=== PATIENT | male | born 1955 | race Caucasian/White ===

== ENCOUNTER 2018-11-23 05:10 | Day surgery (SDC) | payer BC ==
[2018-11-22 16:28] VITALS: BMI 26.4
--- NOTE | 2018-11-23 12:35 | HP ---
Satellite [facility] - Chief Complaint Chief Complaint: left shoulder dislocation - Past Medical History Allergies/Adverse Reactions: Allergies Allergy/AdvReac Type Severity Reaction Status Date / Time No Known Allergies Allergy Verified 02/14/15 15:25 - Current Medications Current Medications: Home Medications Medication Instructions Recorded Atorvastatin Ca [Lipitor] 10 mg PO DAILY 11/22/18 Satellite Physical Exam - Physical Examination General Appearance: Well Nourished, Well Developed, Alert & Oriented x3 ENT: Clear Lung: Normal air movement Heart: Regular rate & rhythm Extremities: Other (left shoulder- + ttp, decr rom, nvi, MRI + posterior GH dislocation, nvi) Neurological: Intact, Alert, Oriented Satellite Impression/Plan - Impression/Plan Impression: left shoulder posterior dislocation Operative Procedure: left shoulder closed reduction possible open reduction Date to be Performed: 11/23/18
[2018-11-23] MEDS ORDERED: ROPIVACAINE HCL 0.5% 30ML VIAL ONE (15:19)
[2018-11-23] MEDS ORDERED: ONDANSETRON 4 MG/2 ML VIAL IVPUSH PRN (15:37)
[2018-11-23] MEDS ORDERED: PROMETHAZINE HCL 25 MG/1 ML VIAL IVPUSH PRN (15:37)
[2018-11-23] MEDS ORDERED: MIDAZOLAM HCL 2 MG/2 ML SINGLE DOSE VIAL ONE ×2 (15:41)
[2018-11-23] MEDS ORDERED: LACTATED RINGERS SOLUTION 1,000 ML IV SCH (15:45)
[2018-11-23] MEDS ORDERED: PROPOFOL 20 ML ONE (16:08)
[2018-11-23] MEDS ORDERED: DEXAMETHASONE SOD PHOSPHATE 4 MG/1 ML VIAL ONE (16:34)
[2018-11-23] MEDS ORDERED: ceFAZolin SODIUM 1 GM VIAL ONE (16:50)
[2018-11-23] MEDS ORDERED: ceFAZolin SODIUM 1 GM VIAL IVPB ONE (16:51)
[2018-11-23] MEDS ORDERED: EPHEDRINE SULFATE/0.9% NACL/PF 50 MG/10 ML SYRINGE NR ONE (17:13)
--- NOTE | 2018-11-23 17:45 | OP ---
Operative Note - Note: Operative Date: 11/23/18 ([facility]) Pre-Operative Diagnosis: left posterior shoulder dislocation Operation: left shoulder attempted closed reduction, open reduction and capsular repair Post-Operative Diagnosis: Same as Pre-op Surgeon: Yung Salinas Media Services Coordinator: Fredy De Jesus Anesthesiologist/SALES COMPENSATION ANALYST: Joce Rausch Anesthesia: General, Local Estimated Blood Loss (mls): 200 Operative Report Dictated: Yes
[2018-11-23] MEDS ORDERED: oxyCODONE HCL 5 MG TABLET PO PRN (18:27)
[2018-11-23] MEDS ORDERED: oxyCODONE HCL 5 MG TABLET ONE (18:59)
[2018-11-23 19:28] VITALS: BP 144/85; PULSE 89; TEMP 97.9
--- NOTE | 2018-11-23 19:54 | OP ---
DATE OF OPERATION: 11/23/2018 PREOPERATIVE DIAGNOSES: Subacute left shoulder dislocation and Hill-Sachs lesion. POSTOPERATIVE DIAGNOSES: Subacute left shoulder dislocation and Hill-Sachs lesion. PROCEDURE: Left shoulder open reduction and anterior capsular repair. SURGEON: Gonzalo Medley MD PHARMACEUTICAL REPRESENTATIVE: DAVID Fung ANESTHESIOLOGIST: Kelvin Uribe CRNA ANESTHESIA: Left interscalene block, LMA anesthesia. DRAINS: None. COMPLICATIONS: None. SPECIMEN: None. BLOOD LOSS: Minimal. BLOOD GIVEN: None. FLUID REPLACEMENT: Plasma-Lyte 1000 mL. This patient is a 63-year-old, [id number] male who is now 11 weeks status post left shoulder dislocation and Hill-Sachs lesion. After understanding the potential risks, complications, alternatives, and benefits of surgery versus nonsurgical treatment, the patient elected to undergo this procedure. The plan was to take the patient to the operating room, attempt closed reduction, and if unsuccessful, do an open reduction and in situ evaluation of structures that potentially would need repairing. He understands the order and decision-making process and has elected to go forward with this procedure. All questions and concerns were addressed for both him and his family members. Patient was brought to the operating room. Peripheral IV placed. IV sedation given. A left interscalene block was performed. LMA anesthesia was induced. He was placed into the beach chair position under deep relaxation sedation. X-rays were taken. At this point, it was noted that overall the dislocation did not look that displaced, and the head overall looked quite intact. The fracture fragments were present, but seemed to be well healed. Multiple attempts were made from multiple different positions and with different maneuvers to try to reduce the shoulder, and it was impossible. After approximately 25 minutes of attempted reduction maneuvers, I made the decision to convert to an open reduction. He was then placed upwards, into completely-upwards beach chair position. The left upper extremity was prepped and draped in sterile fashion. A typical deltopectoral approach was marked out with marking pen. He was given 2 g of IV Ancef. Incision was made with number-15 scalpel blade. Subcutaneous hemostasis was achieved with Bovie cautery dissection done down to the deltopectoral interval. The deltoid was split both with Metzenbaum scissors and bluntly with my fingers. A Henly retractor was placed into the wound superior to the axillary nerve. This then exposed the anterior capsule. It was incised longitudinally. Capsulotomy was done with the Bovie down into the joint capsule. Synovial fluid was suctioned out. I continued with the T capsulotomy. The subscapularis was seen to be draped over the anterior edge of the glenoid because of the posterior dislocation of the humeral head. Once I was into the joint, I was able to use my finger to bluntly dissect some scar tissue and adhesions around the glenoid. The glenoid itself looked fine. It was not damaged. There was no arthritis. There was no defect. The humeral head had a huge Hill-Sachs lesion, one of the biggest I have seen. The Hill-Sachs lesion was so big, it was a large, wide V shape with only a very thin outer shell of humeral head about the width of my finger left anteriorly, laterally, and posteriorly. None was left medially. The entire ball structure of the humeral head was gone. The entire thing had been indented into this V-shape structure and impacted. There was no articular surface left whatsoever. I then used a combination of my finger and a Holden elevator to tease through the adhesive scar tissue, freeing up the humeral head and bringing the posterior edge of the humeral head anterior to the posterior lip of the glenoid. It was highly unstable. It did pop in and then pop out, popped in and then popped out as the Hill-Sachs lesion was so big. It was obvious that it was likely that the patient would need additional surgery in the future, which may include a hemiarthroplasty or total shoulder replacement. The labrum and the rotator cuff looked to be intact, however. The arm was put through a range of motion. It was definitely better than it was prior to beginning the case. External rotation was still significantly limited. The area was copiously irrigated and washed out. I repaired the anterior capsule and imbricated the stretched-out subscapularis with 0 Vicryl sutures. The area was then irrigated and washed out again. I repaired the next layer, which was re-opposing the deltoid fascia, with 0 Vicryl sutures. The top surface was then irrigated and washed out. Then, 2-0 Vicryl was used to close the deep dermal layer. Final skin reapproximation was done with a running subcuticular 4-0 V-Loc 90. It was then washed and dried, covered with SwiftSet glue. He was put into a shoulder immobilizer, extubated. Total operative time was about 1 hour. There were no complications during the case. Patient was brought to the ambulatory recovery room in stable condition. GONZALO MEDLEY M.D. [id number]
== END 2018-11-23 19:30 | disposition home or self-care (01) ==
LOC: JASU-SURG 05:10
PROVIDERS: ATTEND Orthopaedic Surgery
PROC: 0RQK0ZZ Repair Left Shoulder Joint, Open Approach (ICD-10-PCS; principal; 2018-11-23 16:00)
PROC: 0RSK0ZZ Reposition Left Shoulder Joint, Open Approach (ICD-10-PCS; 2018-11-23 16:00)
DX: S43.085A Other dislocation of left shoulder joint, initial encounter (principal); S42.295A Other nondisplaced fracture of upper end of left humerus, initial encounter for closed fracture; X58.XXXA Exposure to other specified factors, initial encounter; Y93.9 Activity, unspecified; Y92.9 Unspecified place or not applicable
CPT/HCPCS: 94760

== ENCOUNTER 2018-12-15 07:37 | Day surgery (SDC) | payer BC ==
[2018-12-13 12:19] VITALS: BMI 26.4
--- NOTE | 2018-12-15 09:48 | HP ---
Satellite [facility] - Chief Complaint Chief Complaint: left shoulder pain/chronic dislocation - Past Medical History Allergies/Adverse Reactions: Allergies Allergy/AdvReac Type Severity Reaction Status Date / Time No Known Allergies Allergy Verified 12/13/18 12:08 - Current Medications Current Medications: Home Medications Medication Instructions Recorded NK [No Known Home Medication] 12/13/18 [facility] Physical Exam - Physical Examination Vital Signs: Vital Signs Period Temp Pulse Resp BP Sys/Griffin Pulse Ox Last 24 Hr 98.3 F 68 16 136/80 100 General Appearance: Well Nourished, Well Developed, Alert & Oriented x3 ENT: Clear Lung: Normal air movement Heart: Regular rate & rhythm Extremities: Other (left shoulder- + ttp, decr rom, nvi, xray/MRI + posterior dislocation with large hill sachs lesion, nvi) Neurological: Intact, Alert, Oriented Satellite Impression/Plan - Impression/Plan Impression: 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
[2018-12-15] MEDS ORDERED: BUPIVACAINE HCL/PF 0.5% (5 MG/ML) 30 ML VIAL IJ ONE (10:07)
[2018-12-15] MEDS ORDERED: BUPIVACAINE LIPOSOME/PF (EXPAREL) 266 MG/20 ML VIAL ONE (10:07)
[2018-12-15] MEDS ORDERED: MIDAZOLAM HCL 2 MG/2 ML SINGLE DOSE VIAL ONE ×3 (10:09→12:31)
[2018-12-15] MEDS ORDERED: ONDANSETRON 4 MG/2 ML VIAL IVPUSH PRN (11:18)
[2018-12-15] MEDS ORDERED: DEXAMETHASONE SOD PHOSPHATE 4 MG/1 ML VIAL ONE (11:27)
[2018-12-15] MEDS ORDERED: KETOROLAC TROMETHAMINE 30 MG/1 ML VIAL ONE (11:27)
[2018-12-15] MEDS ORDERED: LIDOCAINE HCL/PF 2% SDV 5ML VIAL ONE (11:27)
[2018-12-15] MEDS ORDERED: PROPOFOL 20 ML ONE ×2 (11:28)
[2018-12-15] MEDS ORDERED: SODIUM CHLORIDE 0.9% P/F 10 ML VIAL IJ ONE (11:29)
[2018-12-15] MEDS ORDERED: ceFAZolin SODIUM 1 GM VIAL ONE (11:29)
[2018-12-15] MEDS ORDERED: LACTATED RINGERS SOLUTION 1,000 ML IV SCH (11:30)
[2018-12-15] MEDS ORDERED: ROCURONIUM BROMIDE 50 MG/5 ML SYRINGE ONE ×2 (12:27→14:10)
[2018-12-15] MEDS ORDERED: LIDOCAINE HCL 2% JELLY (5 ML/TUBE) ONE (12:28)
[2018-12-15] MEDS ORDERED: fentaNYL CITRATE 250 MCG/5 ML VIAL ONE (12:31)
[2018-12-15] MEDS ORDERED: ceFAZolin SODIUM 1 GM VIAL IVPB ONE (13:15)
[2018-12-15] MEDS ORDERED: GLYCOPYRROLATE 0.2 MG/1 ML VIAL ONE (15:16)
[2018-12-15] MEDS ORDERED: NEOSTIGMINE METHYLSULFATE 0.5 MG/ML - 10 ML MDV ONE (15:16)
--- NOTE | 2018-12-15 15:40 | OP ---
Operative Note - Note: Operative Date: 12/15/18 ([facility]) Pre-Operative Diagnosis: left shoulder chronic shoulder dislocation, proximal humerus fx Operation: left reverse TSA Post-Operative Diagnosis: Same as Pre-op Surgeon: Yung Salinas Social Work Faculty Member: Fredy De Jesus Anesthesiologist/WOOD MECHANIST: Carlos Renae Anesthesia: General, Local Specimens Removed: humeral head Estimated Blood Loss (mls): 400 Operative Report Dictated: Yes
[2018-12-15] MEDS ORDERED: MELATONIN 5 MG TABLETS PO PRN (21:52)
[2018-12-15] MEDS: ceFAZolin 2 GRAM PREMIX BAG IVPB SCH (21:54)
[2018-12-15] MEDS: oxyCODONE HCL 5 MG TABLET PO PRN (22:00)
--- NOTE | 2018-12-15 23:01 | OP ---
DATE OF OPERATION: 12/15/2018 PREOPERATIVE DIAGNOSES: Left shoulder fracture-dislocation and large Hill-Sachs lesion. SURGERY: Left reverse total shoulder replacement and open rotator cuff repair. SURGEON: Gonzalo Medley MD PROCUREMENT INTERN: DAVID Fung ANESTHESIOLOGIST: GREG Hercules ANESTHESIA: Left interscalene block with LMA anesthesia. DRAINS: None. COMPLICATIONS: None. SPECIMEN: Left humeral head. BLOOD LOSS: 100 mL. BLOOD GIVEN: None. FLUID REPLACEMENT: Plasma-Lyte 1000 mL. This patient is a 63-year-old male who is status post left shoulder fracture-dislocation with a very large Hill-Sachs lesion. Attempts were made at closed and even open reduction without success. Prior to the attempted reduction, we did have an extensive conversation about doing a shoulder replacement procedure at that time. He did not want it done at that time and knew that we would have to go back to the operating room for a secondary procedure if he did not do well. All questions and concerns were addressed. We had multiple in-detail conversations prior to today, and as he had a very large Hill-Sachs lesion, a fracture-dislocation of the left humerus, and he is 63 years old, I thought the best surgery for him with the best chance of functional recovery, pain management, and to lessen the likelihood of the need for a revision, a reverse total shoulder replacement with a rotator cuff repair would be best. He understands all the different options, has elected to go forward with this procedure. The patient was brought to the operating room. Peripheral IV placed. IV sedation given. Two grams of IV Ancef were given. A left interscalene block was performed. Patient was placed into the beach chair position with ample padding throughout. Even unconscious in this position, he had almost no passive forward flexion, external rotation, or abduction. The left upper extremity was then prepped and draped in sterile fashion, an incision made within the previous deltopectoral approach incision. Subcutaneous hemostasis was achieved with the Bovie cautery. Blunt dissection with my finger was done through the deltopectoral interval and the recently formed scar tissue. Some sutures in the deltoid were removed. I was able to get down to the anterior aspect of the capsule relatively easily. A Henly retractor and Reguloaner retractors were placed into the wound. Next, we tried to move the humerus anterior into the glenoid. It was physically impossible. I then did a careful anterior capsulotomy, peeled the capsule from the scar tissue, off the proximal humerus, and that portion that was still adherent to the anterior capsule. Evacuated hematoma within the glenohumeral joint. I could easily see and palpate the glenoid which had not fractured; therefore, this was a good landmark for normal anatomy and orientation as its position had not changed. Next, using a Fukuda retractor, a periosteal elevator, and the Bovie, I was able to cut the soft tissue and scar tissue free from the left proximal humerus until it could be better visualized. I then used the external guide and made a provisional humeral neck cut. I was then able to take out the anterior half of the humeral head which had been broken into several pieces. This was passed off the field as specimen. One interesting point was that at this point in the case, I could see that the posterior 60% of the humeral head was completely off and had moved posterior and inferior. I was able to get it out in its entirety, but was very displaced in situ. The rotator cuff was still attached to some bony aspects of the tuberosities, but from the head that I removed. Some osteophytes were removed. The labrum was removed. Access to the glenoid was quite good, and, therefore, using the standard technique, we prepared the glenoid first with a central pin, then with the hemispherical reamer until we saw the inferior smile of cancellous bleeding. Then put in a standard Carlos ReUnion glenoid 32-mm plate first with the central screw, then with 4 screws superior, inferior, anterior, and posterior from 16 to 34 mm in length. It came together quite nicely, and there was excellent fixation in his very good quality bone. There was no apparent osteoporosis. I next put on in a Faria taper fashion a 36-mm glenosphere, went down quite nicely and even augmented the posterior glenoid by about 3 mm. At this point, this area may have been flattened by the recurrent pressure from the posterior dislocation. We then prepared the proximal femur in the standard fashion, first using the hand medullary canal finder and then the hand-held reamers and the broaches up to a size 13. I was going to press fit a 14, so just did the broach to a 13 for better press-fit fixation. I then trialed with the 13 humeral stem and a 4-mm plate with a 4-mm polyethylene on the 36-mm glenosphere. It reduced quite well. It had excellent motion in all planes as well as stability, and there was very little shucking of 1-2 mm at most. Overall, it felt quite good and stable and balanced. It was then dislocated, the trial prosthesis removed. The actual ReUnion short porous-coated proximal fixation humeral stem was placed. It was 14 mm in length and we got an excellent press fit, and then, it was put down to the appropriate depth. I put on a 4-mm plate and the actual 4-mm polyethylene component, hit it into place with the Faria taper fixation, reduced it, again tested shucking and stability and motion, and all were excellent. The area was copiously irrigated and washed out. I then was able to repair the rotator cuff and the anterior capsule over the prosthesis laterally and anterolaterally. It all came together quite nicely and covered the top portion of the component quite well, would definitely add to the anterior and the superior stability. Next, we repaired the deltoid, reapproximating it with reapproximating 2-0 Vicryl sutures. The area was copiously irrigated and washed out again. The deep dermal layer was closed with 2-0 Vicryl and final skin reapproximation was done with a running subcuticular 3-0 V-Loc suture. SwiftSet glue was applied, Aquacel dressing. Patient was extubated. Total blood loss was about 100 mL. Total operative time was about 2 hours. There were no complications during the case. He was put into a shoulder sling and brought down out of the beach chair position. He was brought to the regular recovery room in stable condition. Overall, there were no cardiovascular events during the case. He was quite stable during the case, and overall, I was quite happy with the results. GONZALO MEDLEY M.D. [id number]
[2018-12-16] MEDS: ceFAZolin 2 GRAM PREMIX BAG IVPB SCH (05:42)
[2018-12-16] MEDS ORDERED: CEFAZOLIN 2 GM/D5W 2 GM/50 ML ML IVPB ONE (05:45)
[2018-12-16] MEDS: oxyCODONE HCL 5 MG TABLET PO PRN (05:45)
[2018-12-16] MEDS ORDERED: ceFAZolin 2 GRAM PREMIX BAG IVPB SCH (05:45)
[2018-12-16 08:08] LABS: HEMATOCRIT 29.4 % (35.4-49); HEMOGLOBIN 9.9 GM/dL (11.7-16.9); MCHC 33.8 g/dl (32.0-35.9); MEAN CELL VOLUME 94.8 fl (80-96); MEAN PLT VOLUME 7.1 fl (7.5-11.1); PLATELET COUNT 235 K/MM3 (134-434); RDW 14.8 % (11.9-15.9); WHITE BLOOD COUNT 7.5 K/mm3 (4.0-10.0)
[2018-12-16 08:34] VITALS: BP 138/62; PULSE 98; TEMP 98.8
--- NOTE | 2018-12-16 09:38 | PN ---
Progress Note (short form) - Note Progress Note: Pt seen and examined. He is doing very well on POD #1, s/p left shoulder Total shoulder replacement. He has only minimal pain. He only took PO pain meds 1x overnight. PE Dressing CDI, no drainage LUE is NVI Full, painless ROM of the left elbow, forearm, wrist, fingers Imp Stable and doing very well on POD #1 Rec DC home today F/u in 1 week We went over activities and restrictions again
--- NOTE | 2018-12-16 10:09 | DS ---
Physical Examination Vital Signs: Vital Signs Temperature 98.8 F 12/16/18 08:34 Pulse Rate 98 H 12/16/18 08:34 Respiratory Rate 17 12/16/18 09:50 Blood Pressure 138/62 12/16/18 08:34 O2 Sat by Pulse Oximetry (%) 94 L 12/16/18 09:50 Constitutional: Yes: No Distress, Calm Eyes: Yes: Conjunctiva Clear HENT: Yes: Atraumatic Neck: Yes: Supple Cardiovascular: Yes: Regular Rate and Rhythm Respiratory: Yes: Regular, CTA Bilaterally Gastrointestinal: Yes: Normal Bowel Sounds, Soft Musculoskeletal: Yes: WNL Extremities: Yes: WNL Edema: No Neurological: Yes: Alert, Oriented Psychiatric: Yes: Alert, Oriented Labs: CBC, BMP 12/16/18 07:40 Discharge Summary Reason For Visit: DISLOCATION Procedures: Principal: Left Reverse Total Shoulder replacement and open rotator cuff repair Hospital Course: Patient is a 63 y/o male that presented with left shoulder chronic posterior dislocation/large hill sachs deformity. Patient followed by Orthopedics Dr De Jesus. Patient had left reverse TSA done on L shoulder and is POD #1. Patient denies any complaints of chest pain, SOB, dyspnea with exertion. L shoulder noted in sling with good radial pulse to LLE. Condition: Good - Instructions Diet, Activity, Other Instructions: Post -op Instruction Sheet - Shoulder Surgery - Sling/Immobilizer : You have been placed in a sling. As long as you are wearing this, your shoulder is well protected. You may come out of the sling to dress , or do exercises as directed. You may bend and straighten the shoulder, elbow, and move your wrist and fingers. Please sleep with the sling on. You may find it more comfortable to sleep with a small pillow behind your elbow, or in a recliner. To wash your armpit, you may lean slightly forward and let your arm dangle slightly away from your side and wash with a washcloth. - Use an ice bag/pack on the shoulder for 15 minutes every 2 hours. - Pain medication was sent to your Pharmacy. - Keep your dressing clean and dry. Please call the office to make an appointment for 1 week after surgery. Your dressing will be removed at that time. - No Lifting. - Starting 1-2 days after surgery, you may take your arm out of the sling 3 times a day to bend and straighten your elbow and wrist to prevent stiffness. - Please call the office at [phone] if there are any questions or concerns. Referrals: Yung Salinas MD [Staff Physician] - Disposition: HOME - Home Medications Comprehensive Discharge Medication List: Ambulatory Orders Hydrocodone/Acetaminophen [Hydrocodone-Acetamin 5-325 mg] 1 each PO Q6H #40 tablet MDD 4 12/15/18
--- NOTE | 2018-12-17 18:36 | PATH ---
Surgical Pathology Report Patient Name: VERITO BECKETT [facility]. Rec. #: [id number] /Age/Gender: 1955 (Age: 63) / M Account: [id number] Location: AMBULATORY SURG Taken: 12/15/2018 Received: 12/16/2018 Reported: 12/17/2018 Physicians: Yung Salinas M.D. Specimen(s) Received LEFT HUMERAL HEAD Clinical History Left shoulder posterior dislocation Final Diagnosis BONE, HUMERAL HEAD, LEFT, REVERSE TOTAL SHOULDER REPLACEMENT: BONE WITH DEGENERATIVE JOINT DISEASE. Electronically Signed Jaclyn Coker M.D. Gross Description Received in formalin, labeled "humeral head left," is a 6 x 5 x 3 cm. humeral head. The margin of resection is irregular. The articular surface is focally granular. The underlying trabecular bone is yellow and hard. A sales utility representative section is submitted in one cassette, following decalcification. MLVivekZ/12/17/2018 wilfred/12/17/2018
== END 2018-12-16 10:48 | disposition home or self-care (01) ==
LOC: JASUSAT 07:37 → J6S 17:47 → JASUSAT 12-16 10:48
PROVIDERS: ATTEND Orthopaedic Surgery
PROC: 0LQ20ZZ Repair Left Shoulder Tendon, Open Approach (ICD-10-PCS; 2018-12-15)
PROC: 0RRK00Z Replacement of Left Shoulder Joint with Reverse Ball and Socket Synthetic Substitute, Open Approach (ICD-10-PCS; principal; 2018-12-15 10:00)
DX: S42.295A Other nondisplaced fracture of upper end of left humerus, initial encounter for closed fracture (principal); X58.XXXA Exposure to other specified factors, initial encounter; Y93.9 Activity, unspecified; Y92.9 Unspecified place or not applicable; Y99.9 Unspecified external cause status
CPT/HCPCS: 36415; 73030-TC-LT-FY; 85027; 88305-TC; 88311-TC; 94760; 97116-GP; 97161-GP